=== PATIENT | female | born 1965 | race Caucasian/White ===

== ENCOUNTER → 2020-09-28 09:48 | Outpatient (BNVA) | payer SELFPAY | PROVIDERS: Visit Provider Specialist | DX: M25.531 Pain in right wrist (principal); Z47.89 Encounter for other orthopedic aftercare; S52.501D Unspecified fracture of the lower end of right radius, subsequent encounter for closed fracture with routine healing; S52.601D Unspecified fracture of lower end of right ulna, subsequent encounter for closed fracture with routine healing; X58.XXXD Exposure to other specified factors, subsequent encounter | CPT/HCPCS: 73110 ==

== ENCOUNTER 2020-09-28 11:05 | Outpatient (CLI) | payer SELFPAY | END 2020-09-28 11:06 | disposition home or self-care (01) | LOC: SPT 11:06 | PROVIDERS: Visit Provider Specialist | DX: Z46.89 Encounter for fitting and adjustment of other specified devices (principal); S52.501D Unspecified fracture of the lower end of right radius, subsequent encounter for closed fracture with routine healing; S52.611D Displaced fracture of right ulna styloid process, subsequent encounter for closed fracture with routine healing; X58.XXXD Exposure to other specified factors, subsequent encounter | CPT/HCPCS: 97760; L3982 ==

== ENCOUNTER → 2020-10-08 09:47 | Outpatient (BNVA) | payer SELFPAY | PROVIDERS: Referring Provider Specialist; Visit Provider Specialist | DX: S52.501A Unspecified fracture of the lower end of right radius, initial encounter for closed fracture (principal); S52.611A Displaced fracture of right ulna styloid process, initial encounter for closed fracture; X58.XXXA Exposure to other specified factors, initial encounter | CPT/HCPCS: 73110 ==

== ENCOUNTER → 2023-04-05 08:49 | Outpatient (BNVA) | payer OTHER, SELFPAY | PROVIDERS: Referring Provider Nurse Practitioner Family; Visit Provider Specialist | DX: M79.89 Other specified soft tissue disorders; M79.642 Pain in left hand | CPT/HCPCS: 73130 ==

== ENCOUNTER 2023-05-09 14:59 | Outpatient (CLI) | payer OTHER, SELFPAY ==
--- NOTE | 2023-05-09 15:15 | MR_ITS ---
WS: [id number] MRI LEFT HAND WITHOUT CONTRAST. COMPARISON: Radiographs 04/05/2023 Multiplanar, multisequence imaging is performed without contrast. Markers placed along the dorsal surface of the hand at the level of the third and fourth metatarsal p halangeal joints. Increased T2 signal and edema surrounding the third metacarpal head. Edema appears to be confined to a short segment of the metacarpal head and the third metacarpal phalangeal joint. There is very sligh t separation of the volar plate from the flexor digitorum tendon. This is also the site of the greate st edema. The volar plate is discontinuous at the third metacarpal head. There is also acute edema on both the radial and ulnar locations in the region of the proper collateral ligaments. Seen on the co sanjiv imaging the collateral ligament associated with the third metacarpophalangeal joint appears to be intact although mildly displaced by edema surrounding the metacarpal head. The extensor digitorum tendon appears intact. There is edema in the metacarpal head. No erosions are identified. There is mild narrowing of the interphalangeal joint spaces in the metacarpal phalangeal joint spaces throughout the hand. IMPRESSION: 1. Moderate amount of soft tissue edema centered at the level of the third metacarpal head along with marrow edema in the third metacarpal head. 2. Suspect volar plate injury at the level of the third metacarpal head. The volar plate is not in co ntinuity there is very slight separation of the flexor digitorum tendons from the volar plate. 3. Best seen on the coronal imaging are slightly displaced but intact collateral ligaments. The ulnar collateral ligament is not as well visualized as the radial collateral ligament. 4. Changes described above may be posttraumatic. There are no erosions identified at the third metaca rpal head.
== END 2023-05-09 15:00 | disposition home or self-care (01) ==
PROVIDERS: Visit Provider Specialist
DX: M79.89 Other specified soft tissue disorders (principal); R60.0 Localized edema
CPT/HCPCS: 73218

== ENCOUNTER 2024-02-27 14:46 | Outpatient (CLI) | payer OTHER, SELFPAY ==
--- NOTE | 2024-02-27 14:53 | XRR_ITS ---
PROCEDURE INFORMATION: Exam: XR Lumbosacral Spine Exam date and time: 02/27/2024 3:17 PM Age: 58 years old Clinical indication: Patient HX: Low back pain and left hip pain x 2 weeks. No known injury; Additional info: Pain in left hip TECHNIQUE: Imaging protocol: Radiologic exam of the lumbosacral spine. Views: 6 or more views. Including flexion and extension views. COMPARISON: CR XR hip LT 2-3V wo/w pel* [id number] 02/27/2024 3:17 PM FINDINGS: Bones/joints: Alignment is normal. Vertebral body height is maintained. There is mild disc narrowing at L3-L4 and L1-L2. There are minimal vertebral osteophytes. There is mild lower lumbar facet spondylosis. No acute fracture. No spondylolisthesis with flexion or extension. No pars defect. The visible portion of the pelvis and sacrum is intact. Visible portions of the ribs are intact. Soft tissues: Visible soft tissues are unremarkable. Vasculature: There is mild aortic atherosclerotic disease. XR/XR lumbar spine 6V w f/e [id number] IMPRESSION: 1. No acute findings. 2. Mild lumbar disc and facet degeneration.
--- NOTE | 2024-02-27 14:53 | XRR_ITS ---
PROCEDURE INFORMATION: Exam: XR Left Hip Exam date and time: 02/27/2024 3:17 PM Age: 58 years old Clinical indication: Hip pain; Left hip; Patient HX: No specific injury; Additional info: Pain in left hip TECHNIQUE: Imaging protocol: Radiologic exam of the left hip. Views: 2 or 3 views hip with pelvis when performed. COMPARISON: CR XR lumbar spine 6V w f/e [id number] 02/27/2024 3:17 PM FINDINGS: Bones/joints: There is minimal calcification of the superior labrum. Alignment is normal. Joint spaces are preserved. No acute fracture. Soft tissues: Visible soft tissues are unremarkable. XR/XR hip LT 2-3V wo/w pel* [id number] IMPRESSION: 1. No acute findings. 2. Minimal calcification of the superior labrum. Possible labral degeneration or tear.
== END 2024-02-27 14:47 | disposition home or self-care (01) ==
LOC: RAD 14:51
PROVIDERS: PCP Family Medicine; Visit Provider Family Medicine
DX: M25.552 Pain in left hip (principal); M48.061 Spinal stenosis, lumbar region without neurogenic claudication; M47.816 Spondylosis without myelopathy or radiculopathy, lumbar region
CPT/HCPCS: 72114; 73502

== ENCOUNTER 2024-03-13 15:10 | Outpatient (CLI) | payer OTHER, SELFPAY ==
--- NOTE | 2024-03-13 15:17 | XR_ITS ---
WS: [id number] XR chest 2V* [id number] REASON FOR EXAM: cough FINDINGS: Mild to moderate tortuosity of the thoracic aorta. Normal heart size. Calcified granulomas disease in both hemithoraces. No acute or subacute pulmonary parenchymal or pleural abnormality is identified. Minimal degenerative spondylosis in the mid and lower thoracic spine. Mild dextroscoliosis of the low er thoracic spine. XR/XR chest 2V* [id number] IMPRESSION: No acute or subacute chest abnormality.
== END 2024-03-13 15:11 | disposition home or self-care (01) ==
LOC: RAD 15:12
PROVIDERS: PCP Family Medicine; Visit Provider Nurse Practitioner Family
DX: Q25.46 Tortuous aortic arch (principal); J84.10 Pulmonary fibrosis, unspecified; R05.8 Other specified cough
CPT/HCPCS: 71046

== ENCOUNTER 2024-03-26 08:35 | Outpatient (CLI) | payer OTHER, SELFPAY ==
--- NOTE | 2024-03-26 08:39 | CT_ITS ---
WS: [id number] LDCT LUNG CANCER SCREENING HISTORY: NICOTINE DEPENDENCE,CIGARETTES TECHNIQUE: Axial imaging performed from the apices to 1 cm below the costophrenic angles. Coronal and sagittal reformats are submitted with axial MIP series. All CT scans at [facility] use at least one of these dose optimization techniques: automated exposure control; mA and/or kV adjustment per patient size (includes targeted exams where dose is matched to clinical indication); or iterativ e reconstruction. DLP: 42.32 mGy.cm DIvol: Mean CTDIvol: 0.70 (mGy) COMPARISON: None available. Diagnostic quality: Satisfactory Lungs: Moderate pulmonary hyperexpansion. Hazy attenuation from respiratory bronchiolitis. LEFT perif issural nodule measures 3 mm. No mass or pulmonary nodule. No endobronchial lesions. Heart: Normal size heart with no pericardial effusion.. Other findings: Hilar regions limited without IV contrast. No obvious adenopathy is identified. Mild atherosclerosis aorta. CT/CT lung screening [id number] IMPRESSION: LUNG-RADS: 2-Benign Appearance or Behavior FOLLOW UP: 12 Month: Continue annual screening with LDCT OTHER FINDINGS (S MODIFIER): None.
== END 2024-03-26 08:36 | disposition home or self-care (01) ==
LOC: RAD 08:36
PROVIDERS: PCP Family Medicine; Visit Provider Nurse Practitioner Family
DX: F17.210 Nicotine dependence, cigarettes, uncomplicated (principal)
CPT/HCPCS: 71271

== ENCOUNTER 2024-04-02 12:26 | Outpatient (CLI) | payer OTHER, SELFPAY ==
[2024-04-02 12:41] VITALS: PULSE 87; RESP 18; O2SAT 98
[2024-04-02] MEDS: albuterol 2.5 mg/3 mL Neb INHALATION (12:41)
[2024-04-02 12:46] VITALS: PULSE 89
== END 2024-04-02 12:27 | disposition home or self-care (01) ==
PROVIDERS: PCP Family Medicine; Visit Provider Nurse Practitioner Family
DX: R05.8 Other specified cough (principal); F17.200 Nicotine dependence, unspecified, uncomplicated
CPT/HCPCS: 94060; J7613

== ENCOUNTER 2024-05-07 13:52 | Outpatient (CLI) | payer OTHER, SELFPAY ==
--- NOTE | 2024-05-07 13:54 | MR_ITS ---
WS: [id number] EXAMINATION: MR hip LT wo con* [id number] ORDER DATE: 05/07/2024 2:11 PM COMPARISON: Radiograph 02/27/2024 HISTORY: PAIN IN LEFT HIP CONTRAST: None. TECHNIQUE: Coronal STIR of the Pelvis. Coronal proton density, coronal T1, axial T2 fat sat, axial T1 , sagittal T2 fat sat, and sagittal T1 performed of the hip. FINDINGS: Moderate degenerative narrowing LEFT hip. Normal bone marrow signal in the LEFT femoral head and neck . No acute fractures. No evidence of avascular necrosis. Normal bone marrow signal in the proximal fe mur. Normal sacral ala. No sacral insufficiency fractures. Normal bone marrow signal in the RIGHT femoral head and neck. 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 Normal visualized sigmoid colon. Few sigmoid diverticuli. MR/MR hip LT wo con* [id number] IMPRESSION: 1. Moderate degenerative narrowing LEFT hip. No acute fractures. No evidence o f avascular necrosis. 2. Normal bone marrow signal in the bony pelvis and sacrum. 3. Small amount of tendinopathy and tenosynovitis involving the semimembranosu s and biceps femoris tendon origins at the ischial tuberosity.
== END 2024-05-07 13:53 | disposition home or self-care (01) ==
LOC: RAD 13:52
PROVIDERS: PCP Family Medicine; Visit Provider Family Medicine
DX: M16.12 Unilateral primary osteoarthritis, left hip (principal)
CPT/HCPCS: 73721

== ENCOUNTER → 2024-05-27 08:12 | Outpatient (BNVA) | payer OTHER, SELFPAY | PROVIDERS: PCP Family Medicine; Visit Provider Nurse Practitioner | DX: M25.552 Pain in left hip (principal); M16.12 Unilateral primary osteoarthritis, left hip; M67.952 Unspecified disorder of synovium and tendon, left thigh | CPT/HCPCS: 73502 ==